=== PATIENT | male | born 2000 | race African-American/Black ===

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

== ENCOUNTER 2019-07-07 12:10 | Emergency (ER) | payer SELFPAY ==
[~2019-07-07] VITALS: Ht 175.3 cm; Wt 72.7 kg
[~2019-07-07 12:10] MED LIST: AMOXICILLIN 8751 TAB PO; LOTRISONE LOTIO30 ML TOP
[2019-07-07 12:37] VITALS: BP 117/75; TEMP 97.8
[2019-07-07 13:17] LABS: COLLECTION METHOD CLEAN CATCH
[2019-07-07 13:28] LABS: PH 6 (5-8); SQUAMOUS EPITHELIAL None Seen /hpf; URINE APPEARANCE Clear; URINE BACTERIA None Seen /hpf; URINE BILIRUBIN Negative (NEGATIVE); URINE BLOOD Negative (NEGATIVE); URINE COLOR Yellow; URINE GLUCOSE Negative (NEGATIVE); URINE KETONE Negative (NEGATIVE); URINE LEUKOCYTE ESTERASE Negative (NEGATIVE); URINE NITRATE Negative (NEGATIVE); URINE PROTEIN(semi-quant) 1+ (NEGATIVE); URINE RBC 0-2 /hpf; URINE UROBILINOGEN >=4.0 mg/dL (NEGATIVE)
[2019-07-07] MEDS ORDERED: FLEXERIL 1010 MG/TAB PO (15:14)
[2019-07-07 15:28] VITALS: PULSE 79
== END 2019-07-07 15:28 | disposition home or self-care (01) ==
LOC: COL.ER 12:10
PROVIDERS: Emergency Medicine
DX: S70.01XA Contusion of right hip, initial encounter (principal); S20.211A Contusion of right front wall of thorax, initial encounter; Z87.891 Personal history of nicotine dependence; W17.89XA Other fall from one level to another, initial encounter; W22.8XXA Striking against or struck by other objects, initial encounter
CPT/HCPCS: J1885

== ENCOUNTER 2020-02-29 10:06 | Emergency (ER) | payer SELFPAY ==
[~2020-02-29] VITALS: Ht 175.3 cm; Wt 72.7 kg
[~2020-02-29 10:06] MED LIST changes: +FLEXERIL 1010 MG/TAB PO
[2020-02-29 10:10] VITALS: TEMP 98
[2020-02-29 11:16] VITALS: BP 128/80; PULSE 62
== END 2020-02-29 10:30 | disposition home or self-care (01) ==
LOC: COL.ER 10:06
DX: T16.2XXA Foreign body in left ear, initial encounter (principal)

== ENCOUNTER 2021-04-08 12:39 | Emergency (ER) | payer SELFPAY ==
[~2021-04-08] VITALS: Ht 175.3 cm; Wt 72.7 kg
[2021-04-08 13:16] VITALS: BP 115/63; TEMP 98.6
[2021-04-08 14:15] VITALS: PULSE 76
== END 2021-04-08 14:16 | disposition home or self-care (01) ==
LOC: COL.ER 12:39
DX: S51.812A Laceration without foreign body of left forearm, initial encounter (principal); W26.8XXA Contact with other sharp object(s), not elsewhere classified, initial encounter

== ENCOUNTER → 2021-04-22 | Outpatient (CLI) | payer SELFPAY ==
[2021-04-22 14:13] VITALS: BP 122/78; PULSE 71; TEMP 98.2
== END ==
LOC: COL.ER 13:47
DX: Z48.02 Encounter for removal of sutures (principal)

== ENCOUNTER 2021-12-16 08:52 | Emergency (ER) | payer SELFPAY ==
[~2021-12-16] VITALS: Ht 175.3 cm; Wt 72.7 kg
[2021-12-16 09:19] VITALS: BP 122/82; TEMP 98.1
[2021-12-16 12:04] VITALS: PULSE 74
== END 2021-12-16 12:04 | disposition home or self-care (01) ==
LOC: COL.ER 08:52
DX: R05.9 Cough, unspecified (principal)

== ENCOUNTER 2022-05-16 15:26 | Emergency (ER) | payer SELFPAY ==
[~2022-05-16] VITALS: Ht 175.3 cm; Wt 75.0 kg
[2022-05-16 15:34] VITALS: TEMP 98.4
[2022-05-16 16:30] VITALS: BP 137/79; PULSE 80
== END 2022-05-16 16:30 | disposition home or self-care (01) ==
LOC: COL.ER 15:26
DX: H61.22 Impacted cerumen, left ear (principal)